=== PATIENT | female | born 1950 | race Caucasian/White ===

== ENCOUNTER 2019-05-16 09:41 | Day surgery (SDC) | payer MEDICARE, OTHER ==
[~2019-05-16] VITALS: Ht 160 cm; Wt 48.2 kg
[~2019-05-16 09:41] MED LIST: 8 Hour C500 MG; ANAS1; Aspirin EC81 MG; Cranberry300 MG; Cranberry300 MG PO; HAIR SKIN NAIL1 EACH PO; LETR2.5; LETR2.5 PO; Super Calcium600 MG; Super Calcium600 MG PO; VITAMIN C500 M1 PO; VITAMIN D31000 UNI2 PO; VITAMIN D31000 UNIT; Vitamin E400 UNI4
--- NOTE | 2019-05-16 12:55 | NUR ---
05/16/19 1255 Pattie Martínez 11 ML NORMAL SALINE USED TO ELEVATE 2 POLYPS. 10 ML ELEVIEW USED TO ELEVATE RECTAL/SIGMOID POLYP
== END 2019-05-16 13:26 | disposition home or self-care (01) ==
LOC: ORSCSDS 09:41
PROVIDERS: Internal Medicine Gastroenterology
PROC: 0DBN8ZX Excision of Sigmoid Colon, Via Natural or Artificial Opening Endoscopic, Diagnostic (ICD-10-PCS; principal; 2019-05-16 11:15)
PROC: 0DBK8ZX Excision of Ascending Colon, Via Natural or Artificial Opening Endoscopic, Diagnostic (ICD-10-PCS; principal; 2019-05-16 11:15)
PROC: 0DBL8ZX Excision of Transverse Colon, Via Natural or Artificial Opening Endoscopic, Diagnostic (ICD-10-PCS; principal; 2019-05-16 11:15)
DX: Z86.010 Personal history of colon polyps (principal); D12.3 Benign neoplasm of transverse colon; D12.2 Benign neoplasm of ascending colon; K63.5 Polyp of colon; K64.8 Other hemorrhoids; Z85.3 Personal history of malignant neoplasm of breast; Z79.899 Other long term (current) drug therapy
CPT/HCPCS: 88305; J2704; J7120

== ENCOUNTER 2020-09-10 12:59 | Day surgery (SDC) | payer MEDICARE, OTHER ==
[~2020-09-10] VITALS: Ht 160 cm; Wt 50.2 kg
[2020-11-13] MEDS ORDERED: VITAMIN D325 MC3 PO (12:39)
[2020-11-13] MEDS ORDERED: LETR2.5 PO (12:39)
[2020-11-13] MEDS ORDERED: Cranberry300 MG PO (12:40)
[2020-11-13] MEDS ORDERED: CALCIUM CARBON650 MG PO (12:40)
[2020-11-13] MEDS ORDERED: ASCO500 PO (12:40)
[2020-11-13] MEDS ORDERED: HAIR, SKIN AND1 EAC3 PO (12:40)
== END 2020-09-10 16:45 | disposition home or self-care (01) ==
LOC: ORSCSDS 12:59
PROVIDERS: Internal Medicine Gastroenterology
PROC: 0DBL8ZX Excision of Transverse Colon, Via Natural or Artificial Opening Endoscopic, Diagnostic (ICD-10-PCS; principal; 2020-09-10 13:15)
PROC: 0DBK8ZX Excision of Ascending Colon, Via Natural or Artificial Opening Endoscopic, Diagnostic (ICD-10-PCS; principal; 2020-09-10 13:15)
DX: Z86.010 Personal history of colon polyps (principal); D12.3 Benign neoplasm of transverse colon; D12.2 Benign neoplasm of ascending colon; K64.8 Other hemorrhoids; Z85.3 Personal history of malignant neoplasm of breast; Z79.899 Other long term (current) drug therapy
CPT/HCPCS: 88305; J2704; J7120

== ENCOUNTER 2020-11-20 09:41 | Day surgery (SDC) | payer MEDICARE, OTHER ==
[~2020-11-20] VITALS: Ht 160 cm; Wt 48.8 kg
[~2020-11-20 09:41] MED LIST changes: +ASCO500 PO; +CALCIUM CARBON650 MG PO; +HAIR, SKIN AND1 EAC3 PO; +VITAMIN D325 MC3 PO
--- NOTE | 2020-11-20 12:49 | NUR ---
11/20/20 1249 Pattie Martínez 9ML NORMAL SALINE W/INDIGO CARMINE USED TO ELEVATE POLYPS
== END 2020-11-20 11:26 | disposition home or self-care (01) ==
LOC: ORSCSDS 09:41
PROVIDERS: Internal Medicine Gastroenterology
PROC: 0DBH8ZX Excision of Cecum, Via Natural or Artificial Opening Endoscopic, Diagnostic (ICD-10-PCS; principal; 2020-11-20 11:00)
PROC: 0DBL8ZX Excision of Transverse Colon, Via Natural or Artificial Opening Endoscopic, Diagnostic (ICD-10-PCS; principal; 2020-11-20 11:00)
PROC: 0DBN8ZX Excision of Sigmoid Colon, Via Natural or Artificial Opening Endoscopic, Diagnostic (ICD-10-PCS; principal; 2020-11-20 11:00)
DX: Z86.010 Personal history of colon polyps (principal); D12.3 Benign neoplasm of transverse colon; D12.0 Benign neoplasm of cecum; D12.5 Benign neoplasm of sigmoid colon; Z85.3 Personal history of malignant neoplasm of breast; Z79.899 Other long term (current) drug therapy
CPT/HCPCS: 88305; J2704; J7120

== ENCOUNTER 2021-01-11 06:06 | Inpatient (IN) | payer MEDICARE, OTHER ==
[~2021-01-11] VITALS: Ht 160 cm; Wt 49.7 kg
--- NOTE | 2021-01-11 09:27 | NUR ---
Dressing to procedure site clean, dry, intact with no visible drainage, swelling, erythema or bruising noted.
--- NOTE | 2021-01-11 10:13 | NUR ---
Discharge instructions reviewed with patient. Patient verbalizes understanding. Copy given to patient to take home. Dressing to procedure site clean, dry, intact with no visible drainage, swelling, erythema or bruising noted. Discharged via wheelchair to private car for ride home.
== END 2021-01-11 10:13 | disposition home or self-care (01) | DRG 331 ==
LOC: ORSCMMR 06:06 → ORD 07:30 → ORSCMMR 07:30 → SURS 09:02 → ORSCMMR 09:02 → SURS 10:13
PROVIDERS: ADMIT Surgery
PROC: 0DTJ4ZZ Resection of Appendix, Percutaneous Endoscopic Approach (ICD-10-PCS; 2021-01-11)
PROC: 0DBH4ZZ Excision of Cecum, Percutaneous Endoscopic Approach (ICD-10-PCS; principal; 2021-01-11 07:30)
DX: D12.0 Benign neoplasm of cecum (principal); Z85.3 Personal history of malignant neoplasm of breast; Z98.890 Other specified postprocedural states; Z79.899 Other long term (current) drug therapy
CPT/HCPCS: 88307; A9270; J0295; J1100; J1885; J2405; J2704; J3010; J7120

== ENCOUNTER 2023-03-22 11:23 | Day surgery (SDC) | payer MEDICARE, OTHER ==
[~2023-03-22] VITALS: Ht 160 cm; Wt 45.8 kg
[2023-03-22] MEDS ORDERED: MERIBIN5 MG (12:29)
[2023-03-22 15:08] VITALS: BP 112/68
== END 2023-03-22 15:26 | disposition home or self-care (01) ==
LOC: ORSCSDS 11:23
PROVIDERS: Internal Medicine Gastroenterology
PROC: 0DBL8ZX Excision of Transverse Colon, Via Natural or Artificial Opening Endoscopic, Diagnostic (ICD-10-PCS; principal; 2023-03-22 12:45)
PROC: 0DBM8ZX Excision of Descending Colon, Via Natural or Artificial Opening Endoscopic, Diagnostic (ICD-10-PCS; principal; 2023-03-22 12:45)
PROC: 0DBK8ZX Excision of Ascending Colon, Via Natural or Artificial Opening Endoscopic, Diagnostic (ICD-10-PCS; principal; 2023-03-22 12:45)
PROC: 0DBP8ZX Excision of Rectum, Via Natural or Artificial Opening Endoscopic, Diagnostic (ICD-10-PCS; principal; 2023-03-22 12:45)
DX: D12.6 Benign neoplasm of colon, unspecified (principal); D12.4 Benign neoplasm of descending colon; K63.5 Polyp of colon; Z83.71 Family history of colonic polyps; Z85.3 Personal history of malignant neoplasm of breast; Z17.0 Estrogen receptor positive status [ER+]; Z79.899 Other long term (current) drug therapy
CPT/HCPCS: 88305; J0461; J2001; J2250; J2405; J2704; J7120; Q9968

== ENCOUNTER 2024-05-30 11:09 | Day surgery (SDC) | payer MEDICARE, OTHER ==
[~2024-05-30] VITALS: Ht 160 cm; Wt 47.6 kg
[~2024-05-30 11:09] MED LIST changes: +Glycopyrrolate 0.2 MG/ML 1MLVIAL ONE; +Lidocaine 2% 5 ML SDV ONE; +Lidocaine HCl/Pf 1% 5 ML VIAL ONE; +MERIBIN5 MG; +Methylene Blue 1% 100 MG/10 ML VIAL ONE; +Ondansetron HCl 2 MG / ML 2ML Vial ONE; +ePHEDrine Sulfate 50 MG/ML 1ML Injection ONE
[2024-05-30] MEDS ORDERED: Lactated Ringer's 1,000 ML IV ONE ×2 (12:38→12:39)
[2024-05-30] MEDS ORDERED: propofoL 50 ML IV ONE ×2 (12:39→13:38)
[2024-05-30] MEDS ORDERED: CRANBERRY500 M1 (12:41)
[2024-05-30 14:56] VITALS: BP 112/65
== END 2024-05-30 14:45 | disposition home or self-care (01) ==
LOC: ORSCSDS 11:09
PROVIDERS: Internal Medicine Gastroenterology
PROC: 0DBL8ZX Excision of Transverse Colon, Via Natural or Artificial Opening Endoscopic, Diagnostic (ICD-10-PCS; principal; 2024-05-30 13:15)
PROC: 0DBN8ZX Excision of Sigmoid Colon, Via Natural or Artificial Opening Endoscopic, Diagnostic (ICD-10-PCS; principal; 2024-05-30 13:15)
PROC: 0DBM8ZX Excision of Descending Colon, Via Natural or Artificial Opening Endoscopic, Diagnostic (ICD-10-PCS; principal; 2024-05-30 13:15)
DX: D12.6 Benign neoplasm of colon, unspecified (principal); Z86.0100 Personal history of colon polyps, unspecified; Z83.719 Family history of colon polyps, unspecified; K63.5 Polyp of colon; Q43.8 Other specified congenital malformations of intestine; Z79.899 Other long term (current) drug therapy
CPT/HCPCS: 88305; J2001; J2003; J2405; J2704; J7120; Q9968

== ENCOUNTER → 2024-10-23 | Outpatient (CLI) | payer MEDICARE, OTHER ==
[~2024-10-23] MED LIST changes: +CRANBERRY500 M1; -Glycopyrrolate 0.2 MG/ML 1MLVIAL ONE; -Lidocaine 2% 5 ML SDV ONE; -Lidocaine HCl/Pf 1% 5 ML VIAL ONE; -Methylene Blue 1% 100 MG/10 ML VIAL ONE; -Ondansetron HCl 2 MG / ML 2ML Vial ONE; -ePHEDrine Sulfate 50 MG/ML 1ML Injection ONE
== END ==
LOC: LAB SHORT 13:29 → LAB 13:29
DX: R30.0 Dysuria (principal); R35.0 Frequency of micturition
CPT/HCPCS: 87077; 87086; 87186

== ENCOUNTER 2025-07-16 11:22 | Day surgery (SDC) | payer MEDICARE, OTHER ==
[~2025-07-16] VITALS: Ht 160 cm; Wt 47.5 kg
[~2025-07-16 11:22] MED LIST changes: +Glycopyrrolate 0.2 MG/ML 1MLVIAL ONE; +Ondansetron HCl 2 MG / ML 2ML Vial ONE; +ePHEDrine Sulfate 50 MG/ML 1ML Injection ONE
[2025-07-16 15:53] VITALS: BP 105/87
== END 2025-07-16 15:52 | disposition home or self-care (01) ==
LOC: ORSCSDS 11:22
PROVIDERS: Internal Medicine Gastroenterology
PROC: 0DBL8ZX Excision of Transverse Colon, Via Natural or Artificial Opening Endoscopic, Diagnostic (ICD-10-PCS; principal; 2025-07-16 12:45)
PROC: 0DBH8ZX Excision of Cecum, Via Natural or Artificial Opening Endoscopic, Diagnostic (ICD-10-PCS; principal; 2025-07-16 12:45)
DX: Z12.11 Encounter for screening for malignant neoplasm of colon (principal); D12.3 Benign neoplasm of transverse colon; K63.5 Polyp of colon; Z85.3 Personal history of malignant neoplasm of breast; Z86.0101 Personal history of adenomatous and serrated colon polyps
CPT/HCPCS: 88305; J0461; J2003; J2405; J2704; J7120; Q9968